=== PATIENT | male | born 1990 | race Caucasian/White ===

== ENCOUNTER 2017-03-13 09:32 | Emergency (ER) | payer MEDICAID, OTHER ==
[~2017-03-13] VITALS: Ht 185.4 cm; Wt 95.0 kg
[2017-03-13 10:07] VITALS: Ht 185.4 cm; Wt 95.0 kg
[2017-03-13] MEDS ORDERED: KETOROLAC 30 MG INJ IM STA (11:43)
[2017-03-13] MEDS ORDERED: DIAZEPAM 5 MG/ML SYG IM ONE (12:00)
--- NOTE | 2017-03-13 12:08 | ERD ---
ER Documentation Chief Complaint Date/Time DATE: 03/13/17 TIME: 12:05 Chief Complaint LEFT LOWER EXREMITY PAIN 03/05 HPI 26-year-old male presents with left-sided low back pain that started yesterday, it started the next day after he had done squats and leg workouts at the gym. Patient describes low back pain on the left side that radiates to the left lateral leg to his left foot and he has associated numbness to the top of his foot. He has no difficulty with ambulation. He states that his friend who is a "therapist" had done some stretching exercises, he also got cupping on his back. He has not taken anything for pain, he did try applying a heating pad to his leg on the left lateral thigh. He denies saddle anesthesia or loss of bowel bladder function. He denies fevers or chills or trauma ROS All systems reviewed and are negative except as per history of present illness. Medications Home Meds Active Scripts Diazepam* (Valium*) 5 Mg Tablet, 5 MG PO Q8, #10 TAB Prov:AMANDA GIBBS PA-C 03/13/17 Naproxen* (Naprosyn*) 500 Mg Tablet, 500 MG PO BID Y for PAIN AND/OR INFLAMMATION, #30 TAB Prov:AMANDA GIBBS PA-C 03/13/17 PMhx/Soc Medical and Surgical Hx: pt denies Medical Hx, pt denies Surgical Hx Hx Alcohol Use: No Hx Substance Use: No Hx Tobacco Use: No Smoking Status: Never smoker Physical Exam Vitals Vital Signs Date Time Temp Pulse Resp B/P Pulse Ox O2 Delivery O2 Flow Rate FiO2 03/13/17 10:07 98.9 90 18 128/78 98 Physical Exam General: Well-developed, well-nourished. The patient appears in no acute distress. HEENT: Head is normocephalic, atraumatic. No scleral icterus. Neck: Supple. Nontender. Lungs: Clear to auscultation. Normal air movement. Heart: Regular rate and rhythm. S1 and S2 are normal. No murmurs, gallops, or rubs. Abdomen: Soft, nontender, nondistended. Bowel sounds are normoactive. Back: No midline tenderness, no step-offs, evidence of cupping. Strength lower extremities 5 out of 5 bilaterally. Extremities: No clubbing or cyanosis. Normal pulses. Moving extremities x 4. No weakness. Neurologic: Alert and oriented 3. No focal deficits. Skin: Normal turgor. No rash or lesions. Results 24 hrs Current Medications Medications (Trade) Dose Ordered Sig/Maykel Route PRN Reason Start Time Stop Time Status Last Admin Dose Admin Ketorolac Tromethamine (Toradol) 30 mg ONCE STAT IM 03/13/17 11:43 03/13/17 11:44 DC 03/13/17 12:05 Diazepam (Valium) 5 mg ONCE ONCE IM 03/13/17 12:00 03/13/17 12:01 DC 03/13/17 12:06 Procedures/MDM ED course: Patient was given Toradol 30 mg IM, Valium 5 mg IM was given. MDM: 26-year-old male comes in with left-sided low back pain, with radicular symptoms. He was medicated with Toradol as well as Valium in the emergency department for significant better. Patient's symptoms are controlled in the emergency department I feel that the patient can appropriately be discharged with anti-inflammatories and continuing Valium. He does not show signs of cauda equina, epidural abscess or epidural hematoma. No weakness to lower extremities, patient did ask if it would be possible to obtain an MRI. He does not show any concerning signs of neurologic compromise at this time associated with low back pain. I have asked the patient to follow-up with his primary care physician, who may consider an MRI at that point if symptoms are not improving. Patient has been asked to return if he has any worsening or new symptoms. Departure Diagnosis: Primary Impression: Low back pain Condition: AMANDA Castro PA-C Mar 13, 2017 12:07
[2017-03-13] MEDS ORDERED: NAPR-260 PO (12:57)
[2017-03-13] MEDS ORDERED: DIAZ-90 PO (12:57)
== END 2017-03-13 13:08 | disposition home or self-care (01) ==
LOC: FTE 09:32
DX: M54.5 Low back pain (principal)
CPT/HCPCS: 96372; J1885; J3360; Z7502